=== PATIENT | female | born 1955 | race Caucasian/White ===

== ENCOUNTER 2020-05-06 10:57 | Inpatient (IN) | payer MEDICARE, BC ==
[2020-04-29 12:55] LABS: BASOPHILS % (AUTO) 0.7 % (0-1); EOSINOPHILS % (AUTO) 0.8 % (0-6); LYMPHOCYTES # (AUTO) 1.1 X10'3 (1.1-4.8); LYMPHOCYTES % (AUTO) 22.1 % (21-51); MEAN CORPUSCULAR HEMOGLOBIN 29.9 PG (27.0-31.0); MEAN CORPUSCULAR HGB CONC 33.5 g/dL (33.0-36.5); MEAN CORPUSCULAR VOLUME 89.4 FL (78-98); MEAN PLATELET VOLUME 6.9 FL (7.4-10.4); MONOCYTES # (AUTO) 0.4 X10'3 (0-0.9); MONOCYTES % (AUTO) 8.5 % (2-12); NEUTROPHILS # (AUTO) 3.4 X10'3 (1.8-7.7); NEUTROPHILS % (AUTO) 67.9 % (42-75); PRE OP HEMATOCRIT 35.7 % (35.0-45.0); PRE OP HEMOGLOBIN 11.9 g/dL (12.0-16.0); PRE OP PLATELET COUNT 395 X10'3 (140-440); RED BLOOD COUNT 3.99 X10'6 (4.20-5.60); RED CELL DISTRIBUTION WIDTH 13.6 % (11.5-14.5)
[2020-04-29 13:05] LABS: ALBUMIN 3.8 G/DL (3.4-5.0); ALBUMIN/GLOBULIN RATIO 0.9 (1.1-1.5); ALKALINE PHOSPHATASE 93 IU/L (46-116); BLOOD UREA NITROGEN 21 MG/DL (7-18); BUN/CREATININE RATIO 23.9 (6.6-38.0); CALCIUM 9.2 MG/DL (8.5-10.1); CHLORIDE 104 MMOL/L (99-107); CREATININE 0.88 MG/DL (0.40-0.90); PRE OP ALT 44 U/L (30-65); PRE OP ANION GAP 4 (8-16); PRE OP AST 24 U/L (10-37); PRE OP BILIRUB, TOTAL 0.2 MG/DL (0.0-1.0); PRE OP POTASSIUM 3.9 MMOL/L (3.4-5.1); PRE OP PROTIME 10.2 SECONDS (9.0-12.0); PRE OP SODIUM 140 MMOL/L (135-145); TOTAL CARBON DIOXIDE 31.7 MMOL/L (24-32); TOTAL PROTEIN 8.2 G/DL (6.4-8.2); eGFR 64 ML/MIN
[2020-04-29 13:06] LABS: PRE OP GLUCOSE 121 MG/DL (70-104)
[~2020-05-06] VITALS: Ht 162.6 cm; Wt 90.3 kg
[2020-05-06] VITALS (20 sets, daily range): BP systolic 114–144; BP diastolic 53–97
--- NOTE | 2020-05-06 05:30 | NUR ---
Patient in room ORTHO 4023. I have received report from KASSANDRA Alfaro and had the opportunity to ask questions and assume patient care.
--- NOTE | 2020-05-06 06:00 | NUR ---
Problems reprioritized. Patient report given, questions answered & plan of care reviewed with KASSANDRA Suarez.
[~2020-05-06 10:57] MED LIST: AMPH20TA3 PO; CHLO50TA PO; CHOL100025 PO; ESCI20TA45 PO; MAGN400C PO; OLME5TAB3 PO; OMEG-79 PO; VITA1CAP PO; cefazolin/dext.iso 2gm/50ml 50 ML IV ONE; famotidine 20mg tablet PO ONE; ringers solution, lacted 1,000 ML IV SCH; vancomycin 1,500 MG in NS 300ml IV soln IV ONE
[2020-05-06] MEDS ORDERED: ROPIVAcaine inj 200 MG, ketorolac trometh inj. 30 MG, epiNEPHrine inj 0.6 MG, morphine ... IU ONE ×5 (12:50)
[2020-05-06] MEDS ORDERED: vancomycin 1,000mg inj ONE (12:59)
[2020-05-06] MEDS ORDERED: ceFAZolin 1000mg inj ONE (12:59)
[2020-05-06] MEDS ORDERED: scopolamine 1.5mg patch.TD72 TD ONE (13:05)
[2020-05-06] MEDS ORDERED: propofol 10mg/ml 20ml vial IV ONE (13:09)
[2020-05-06] MEDS ORDERED: TRANEXAMIC ACID 1 GM IN NACL,ISO-OS 100 ML IV ONE (13:15)
[2020-05-06] MEDS ORDERED: tetracaine 1% (10mg/ml) pres. free inj. ONE (13:23)
[2020-05-06] MEDS ORDERED: Thrombin (Bovine) 5,000 unit vial TP ONE (13:24)
[2020-05-06] MEDS ORDERED: hydrALAZINE 20mg/ml inj. IV PRN (14:15)
[2020-05-06] MEDS ORDERED: labetalol 20mg/4ml (5mg/ml) syringe IV PRN (14:15)
[2020-05-06] MEDS ORDERED: HYDROmorphone inj. 0.5 MG/0.5 ML DISP.SYRIN IV PRN ×3 (14:15→15:20)
[2020-05-06] MEDS ORDERED: ringers solution, lacted 1,000 ML IV SCH (14:15)
[2020-05-06] MEDS ORDERED: meperidine/PF 25mg/ml syringe IV PRN (14:15)
[2020-05-06] MEDS ORDERED: morphine 4 MG/ML inj SYRINge IV PRN (14:15)
[2020-05-06] MEDS ORDERED: morphine 2 MG/ML inj. syringe IV PRN (14:15)
[2020-05-06] MEDS ORDERED: acetaminophen 1,000mg/100ml IV 100 ML IV PRN (14:15)
[2020-05-06] MEDS ORDERED: ondansetron/PF 4mg/2ml inj IV PRN ×2 (14:15→15:20)
[2020-05-06] MEDS ORDERED: proCHLORperazine 10 MG/2 ml inj IV PRN (14:15)
[2020-05-06] MEDS ORDERED: ROPIVAcaine 0.2% (10 MG/5 ML) BOLUS INJECTION ADDCANAL PRN (14:20)
[2020-05-06] MEDS ORDERED: HYDROmorphone 1 mg/ml syringe IV PRN (15:20)
[2020-05-06] MEDS ORDERED: magnesium hydroxide 30ml (MOM) UD suspension PO PRN (15:20)
[2020-05-06] MEDS ORDERED: oxyCODONE IR 5mg (immed. release) tablet PO PRN ×2 (15:20)
[2020-05-06] MEDS ORDERED: bisacodyl 10mg suppository rectal RC PRN (15:20)
[2020-05-06] MEDS ORDERED: acetaminophen 325mg tablet PO PRN (15:20)
[2020-05-06] MEDS ORDERED: diphenhydrAMINE 25mg capsule PO PRN ×2 (15:20)
--- NOTE | 2020-05-06 15:57 | NUR ---
Received from OR via ORTHO BED WITH [facility] , accompanied by Anesthesiologist JUNIOR and report given by Anesthesiolgist. PATIENT WITH 20G PIV IN RIGHT HAND RUNNING LR AT 100. DENIES PAIN, SENSATION LEVEL AT L1 CURRENTLY. NERVE BLOCK SITE TO LEFT UPPER THIGH AREA THAT IS CDI. CONNECTED TO ON Q UPON ARRIVAL. + DP TO LEFT FOOT, KNEE WRAP PRESENT AND IS CDI, POWDER PACK PRESENT. NUPUR VAC. NO DRAINAGE TO DRESSING. PATIENT SCDS DONNED UPON ARRIVAL. MORALES CATHETER IN PLACE WITH 600 CC OF CLEAR YELLOW URINE. VSS 10L MASK ON WITH 100% SATURATIONS. GLASSES DONNED. Addendum: 05/06/20 at 1623 by Dominic Orozco RN, RN Amended: Links added.
[2020-05-06] MEDS: ROPIVAcaine 0.2%/PF PUMP/bolus 550 ML ADDCANAL SCH ×2 (16:05→19:33)
--- NOTE | 2020-05-06 17:27 | NUR ---
ALL CRITERIA FOR TRANSFER TO THE FLOOR HAS BEEN ACHIEVED. REPORT GIVEN AND ALL QUESTIONS ANSWERED, VSS. BED LOW 2 RAILS UP, CALL LIGHT PRESENT AND PATIENT HOOKED UP TO ALL LINES AND VSS. PATIENTS RN PRESENT TO ACCEPT CARE. KASSANDRA HOU PRESENT TO ACCEPT CARE OF THIS PATIENT. 2 BAGS PLACED ON BEDSIDE OF 4023A AND GLASSES ON PATIENTS FACE WHILE SHE HELD HER PERSONAL PHONE. Addendum: 05/06/20 at 1734 by Dominic Christina - KASSANDRA CANNON Amended: Links added.
--- NOTE | 2020-05-06 18:08 | NUR ---
Problems reprioritized. Patient report given, questions answered & plan of care reviewed with Daniela CANNON.
[2020-05-06] MEDS ORDERED: tranexamic acid inj. 900 MG in normal saline 100ml IV soln 100 ML IV ONE (18:30)
[2020-05-06] MEDS: acetaminophen 325mg tablet PO SCH (19:19)
[2020-05-06] MEDS ORDERED: vancomycin/NS 1 GM ADD-VANTAGE 250 ML IV SCH (20:00)
[2020-05-06] MEDS: gabapentin 300mg capsule PO SCH (21:00)
[2020-05-06] MEDS: sennosides 8.6mg tablet PO SCH (21:00)
[2020-05-06] MEDS: ceFAZolin 1GM/D5W- ADD-VANTAGE 50 ML IV SCH (21:21)
[2020-05-06] MEDS: potassium cl 20mEq in 1/2 NS 1,000 ML IV SCH ×2 (23:20→23:28)
[2020-05-07] MEDS: ceFAZolin 1GM/D5W- ADD-VANTAGE 50 ML IV SCH (02:00)
[2020-05-07] MEDS: acetaminophen 325mg tablet PO SCH ×2 (02:06→08:21)
[2020-05-07] MEDS: HYDROcodone/acetaminophen 5mg/325mg tablet PO PRN (05:29)
[2020-05-07] MEDS: ROPIVAcaine 0.2%/PF PUMP/bolus 550 ML ADDCANAL SCH (05:31)
--- NOTE | 2020-05-07 05:56 | NUR ---
reported to days. noted pt ortega removed. anxious to start with PT. pt requested lower dose of norco "I don't like taking a lot of pain medication if I don't need to, but I also don't like pain." gave norco with crackers and applesauce
[2020-05-07 06:00] VITALS: BP 122/81
[2020-05-07 06:28] LABS: BASOPHILS % (AUTO) 0.3 % (0-1); EOSINOPHILS % (AUTO) 0.6 % (0-6); HEMATOCRIT 32.9 % (35.0-45.0); HEMOGLOBIN 10.9 g/dl (12.0-16.0); LYMPHOCYTES % (AUTO) 13.2 % (21-51); MEAN CORPUSCULAR HEMOGLOBIN 29.7 PG (27.0-31.0); MEAN CORPUSCULAR HGB CONC 33.1 g/dL (33.0-36.5); MEAN CORPUSCULAR VOLUME 89.7 FL (78-98); MEAN PLATELET VOLUME 7.1 FL (7.4-10.4); MONOCYTES # (AUTO) 0.5 X10'3 (0-0.9); MONOCYTES % (AUTO) 7.1 % (2-12); NEUTROPHILS # (AUTO) 6.1 X10'3 (1.8-7.7); NEUTROPHILS % (AUTO) 78.8 % (42-75); PLATELET COUNT 365 X10'3 (140-440); RED BLOOD COUNT 3.67 X10'6 (4.20-5.60); RED CELL DISTRIBUTION WIDTH 13.7 % (11.5-14.5); WHITE BLOOD COUNT 7.7 X10'3 (4.5-11.0)
[2020-05-07 06:40] LABS: ANION GAP 9 (8-16); CHLORIDE 105 MMOL/L (99-107); POTASSIUM 4.4 MMOL/L (3.5-5.1); SODIUM 142 MMOL/L (135-145); TOTAL CARBON DIOXIDE 28.3 MMOL/L (24-32)
[2020-05-07] MEDS ORDERED: dextroamphetamine/amphetamine 10mg tablet PO SCH (08:00)
[2020-05-07] MEDS: losartan 25mg tablet PO SCH (08:19)
[2020-05-07] MEDS: chlorthalidone 25mg tablet PO SCH (08:19)
[2020-05-07] MEDS: vitamin B comp w/Vit. C tab 1 TAB TABLET PO SCH (08:19)
[2020-05-07] MEDS: gabapentin 300mg capsule PO SCH ×3 (08:20→19:45)
[2020-05-07] MEDS: OMEGA-3/DHA/EPA/FISH OIL 1 EACH CAPSULE.DR PO SCH (08:20)
[2020-05-07] MEDS: magnesium oxide 400mg tablet PO SCH (08:20)
[2020-05-07] MEDS: ESCITALOPRAM OXALATE 5 MG TABLET PO SCH (08:20)
[2020-05-07] MEDS: vitamin D (cholecalciferol) 1,000 unit tablet PO SCH (08:21)
[2020-05-07] MEDS: enoxaparin 40mg/0.4ml syringe SQ SCH (08:22)
[2020-05-07 10:00] VITALS: BP 113/58
[2020-05-07] MEDS: potassium cl 20mEq in 1/2 NS 1,000 ML IV SCH (10:33)
[2020-05-07] MEDS: HYDROcodone/acetaminophen 10/325mg tab PO PRN ×3 (11:02→19:46)
--- NOTE | 2020-05-07 13:39 | NUR ---
Doctor to see patient educated, gave test results. Patient came out and started walking out of the hospital, doctor aware patient is leaving AM and patient refused to sign form. Addendum: 05/07/20 at 1424 by Brina Santos RN WRONG PATIENT
--- NOTE | 2020-05-07 14:24 | NUR ---
Joint Replacement Consult: Pt seen by RD for written/verbal high protein ed w/ RD contact information. Pt is agreeable to Leia ALBARADO; SOCK TURNER notified. Will continue to monitor for additional protein needs this admit. To f/u 05/11 for initial assessment. Addendum: 05/07/20 at [address] Amended: Links added.
[2020-05-07] MEDS ORDERED: JUVEN Smoothie Arginine/Glut./Ca2+Bmb (Juven 19.3pkt) 240ml cup PO SCH (17:30)
[2020-05-07 18:00] VITALS: BP 127/62
--- NOTE | 2020-05-07 18:30 | NUR ---
Patient in room ORTHO 4023. I have received report from Brina CANNON and had the opportunity to ask questions and assume patient care.
[2020-05-07] MEDS: celeCOXIB 100mg capsule PO SCH (19:45)
[2020-05-07] MEDS: sennosides 8.6mg tablet PO SCH (19:46)
[2020-05-07 22:00] VITALS: BP 123/56
[2020-05-08] MEDS: HYDROcodone/acetaminophen 10/325mg tab PO PRN (05:02)
[2020-05-08 06:00] VITALS: BP 124/54
[2020-05-08 06:02] LABS: BASOPHILS % (AUTO) 0.2 % (0-1); EOSINOPHILS # (AUTO) 0.1 X10'3 (0-0.9); EOSINOPHILS % (AUTO) 0.8 % (0-6); HEMATOCRIT 29.2 % (35.0-45.0); HEMOGLOBIN 9.8 g/dl (12.0-16.0); LYMPHOCYTES # (AUTO) 0.9 X10'3 (1.1-4.8); LYMPHOCYTES % (AUTO) 14.3 % (21-51); MEAN CORPUSCULAR HEMOGLOBIN 29.9 PG (27.0-31.0); MEAN CORPUSCULAR HGB CONC 33.4 g/dL (33.0-36.5); MEAN CORPUSCULAR VOLUME 89.5 FL (78-98); MEAN PLATELET VOLUME 7.1 FL (7.4-10.4); MONOCYTES # (AUTO) 0.7 X10'3 (0-0.9); MONOCYTES % (AUTO) 10.4 % (2-12); NEUTROPHILS # (AUTO) 4.8 X10'3 (1.8-7.7); NEUTROPHILS % (AUTO) 74.3 % (42-75); PLATELET COUNT 320 X10'3 (140-440); RED BLOOD COUNT 3.26 X10'6 (4.20-5.60); RED CELL DISTRIBUTION WIDTH 13.6 % (11.5-14.5); WHITE BLOOD COUNT 6.4 X10'3 (4.5-11.0)
--- NOTE | 2020-05-08 06:24 | NUR ---
Problems reprioritized. Patient report given, questions answered & plan of care reviewed with Patrick CANNON.
--- NOTE | 2020-05-08 06:32 | NUR ---
Patient in room ORTHO 4023. I have received report from [facility] and had the opportunity to ask questions and assume patient care.
[2020-05-08] MEDS: gabapentin 300mg capsule PO SCH ×3 (07:39→19:51)
[2020-05-08] MEDS: magnesium oxide 400mg tablet PO SCH (07:39)
[2020-05-08] MEDS: celeCOXIB 100mg capsule PO SCH ×2 (07:40→19:50)
[2020-05-08] MEDS: vitamin B comp w/Vit. C tab 1 TAB TABLET PO SCH (07:40)
[2020-05-08] MEDS: losartan 25mg tablet PO SCH (07:40)
[2020-05-08] MEDS: OMEGA-3/DHA/EPA/FISH OIL 1 EACH CAPSULE.DR PO SCH (07:40)
[2020-05-08] MEDS: ESCITALOPRAM OXALATE 5 MG TABLET PO SCH (07:40)
[2020-05-08] MEDS: vitamin D (cholecalciferol) 1,000 unit tablet PO SCH (07:40)
[2020-05-08] MEDS: chlorthalidone 25mg tablet PO SCH (07:40)
[2020-05-08] MEDS: enoxaparin 40mg/0.4ml syringe SQ SCH (07:41)
[2020-05-08] MEDS: dextroamphetamine/amphetamine 5mg tablet PO SCH (08:32)
[2020-05-08 10:00] VITALS: BP 109/55
[2020-05-08] MEDS: HYDROcodone/acetaminophen 5mg/325mg tablet PO PRN (12:35)
[2020-05-08] MEDS: ROPIVAcaine 0.2%/PF PUMP/bolus 550 ML ADDCANAL SCH (14:20)
[2020-05-08] MEDS ORDERED: acetaminophen 325mg tablet PO PRN (15:20)
[2020-05-08 18:00] VITALS: BP 155/67
--- NOTE | 2020-05-08 18:12 | NUR ---
Problems reprioritized. Patient report given, questions answered & plan of care reviewed with Meghana.
--- NOTE | 2020-05-08 18:18 | NUR ---
Patient in room ORTHO 4023. I have received report from Patrick CANNON and had the opportunity to ask questions and assume patient care.
[2020-05-08] MEDS: sennosides 8.6mg tablet PO SCH (19:52)
[2020-05-08 22:00] VITALS: BP 149/70
[2020-05-09] MEDS: HYDROcodone/acetaminophen 5mg/325mg tablet PO PRN (00:49)
[2020-05-09] MEDS: ROPIVAcaine 0.2%/PF PUMP/bolus 550 ML ADDCANAL SCH ×2 (03:57→05:06)
[2020-05-09] MEDS: HYDROcodone/acetaminophen 10/325mg tab PO PRN (04:53)
[2020-05-09 06:17] LABS: BASOPHILS % (AUTO) 0.4 % (0-1); EOSINOPHILS # (AUTO) 0.1 X10'3 (0-0.9); EOSINOPHILS % (AUTO) 1.5 % (0-6); HEMATOCRIT 28.6 % (35.0-45.0); HEMOGLOBIN 9.6 g/dl (12.0-16.0); LYMPHOCYTES % (AUTO) 13.1 % (21-51); MEAN CORPUSCULAR HEMOGLOBIN 29.9 PG (27.0-31.0); MEAN CORPUSCULAR HGB CONC 33.6 g/dL (33.0-36.5); MEAN CORPUSCULAR VOLUME 88.9 FL (78-98); MEAN PLATELET VOLUME 7.1 FL (7.4-10.4); MONOCYTES # (AUTO) 0.8 X10'3 (0-0.9); MONOCYTES % (AUTO) 10.6 % (2-12); NEUTROPHILS # (AUTO) 5.4 X10'3 (1.8-7.7); NEUTROPHILS % (AUTO) 74.4 % (42-75); PLATELET COUNT 343 X10'3 (140-440); RED BLOOD COUNT 3.22 X10'6 (4.20-5.60); RED CELL DISTRIBUTION WIDTH 13.4 % (11.5-14.5); WHITE BLOOD COUNT 7.3 X10'3 (4.5-11.0)
--- NOTE | 2020-05-09 06:40 | NUR ---
Problems reprioritized. Patient report given, questions answered & plan of care reviewed with Brina CANNON.
[2020-05-09 06:46] VITALS: BP 147/62
[2020-05-09 08:10] VITALS: BP_SYST 147
[2020-05-09] MEDS: losartan 25mg tablet PO SCH (08:10)
[2020-05-09] MEDS: chlorthalidone 25mg tablet PO SCH (08:11)
[2020-05-09] MEDS: vitamin D (cholecalciferol) 1,000 unit tablet PO SCH (08:12)
[2020-05-09] MEDS: OMEGA-3/DHA/EPA/FISH OIL 1 EACH CAPSULE.DR PO SCH (08:12)
[2020-05-09] MEDS: celeCOXIB 100mg capsule PO SCH (08:13)
[2020-05-09] MEDS: vitamin B comp w/Vit. C tab 1 TAB TABLET PO SCH (08:13)
[2020-05-09] MEDS: dextroamphetamine/amphetamine 5mg tablet PO SCH (08:13)
[2020-05-09] MEDS: ESCITALOPRAM OXALATE 5 MG TABLET PO SCH (08:14)
[2020-05-09] MEDS: enoxaparin 40mg/0.4ml syringe SQ SCH (08:15)
[2020-05-09] MEDS: magnesium oxide 400mg tablet PO SCH (08:15)
[2020-05-09] MEDS: gabapentin 300mg capsule PO SCH (08:15)
== END 2020-05-09 13:30 | DRG 470 ==
LOC: PAS IN 11:24 → UNDOADMIN 11:24 → EDSTATUS 12:45 → PAS IN 15:16 → ORTHO 4S 17:18
PROVIDERS: ADMIT Orthopaedic Surgery; ATTEND Orthopaedic Surgery
PROC: 0SRD0J9 Replacement of Left Knee Joint with Synthetic Substitute, Cemented, Open Approach (ICD-10-PCS; principal; 2020-05-06 13:09)
DX: M17.12 Unilateral primary osteoarthritis, left knee (principal); D62 Acute posthemorrhagic anemia
CPT/HCPCS: 36415; 80051; 80053; 82948; 85025; 85610; 85730; 87081; 87635; 97110; 97112; 97116; 97161; 97530; A4215; A6454; A7000; C1713; C1758; C1776; G0378; J0690; J1650; J2405; J2704; J2795; J3370; J3480; J7040; J7120

== ENCOUNTER → 2020-09-08 | Outpatient (CLI) | payer MEDICARE, BC ==
[~2020-09-08] MED LIST changes: +AMOX-580 PO; -ESCI20TA45 PO; +HYDR-3965 PO; +LIDOcaine 2% 5ml jelly ONE; -cefazolin/dext.iso 2gm/50ml 50 ML IV ONE; -famotidine 20mg tablet PO ONE; -ringers solution, lacted 1,000 ML IV SCH; -vancomycin 1,500 MG in NS 300ml IV soln IV ONE
== END | disposition home or self-care (01) ==
LOC: EDSTATUS 10:00 → WOUND CARE 10:06
PROVIDERS: ATTEND Nurse Practitioner
DX: T81.89XD Other complications of procedures, not elsewhere classified, subsequent encounter (principal); S31.609D Unspecified open wound of abdominal wall, unspecified quadrant with penetration into peritoneal cavity, subsequent encounter; I12.9 Hypertensive chronic kidney disease with stage 1 through stage 4 chronic kidney disease, or unspecified chronic kidney disease; N18.30 Chronic kidney disease, stage 3 unspecified; E87.1 Hypo-osmolality and hyponatremia; E87.6 Hypokalemia; F32.9 Major depressive disorder, single episode, unspecified; F90.9 Attention-deficit hyperactivity disorder, unspecified type; Z96.659 Presence of unspecified artificial knee joint; X58.XXXD Exposure to other specified factors, subsequent encounter; Y83.8 Other surgical procedures as the cause of abnormal reaction of the patient, or of later complication, without mention of misadventure at the time of the procedure
CPT/HCPCS: 11042

== ENCOUNTER 2020-12-02 19:51 | Emergency (ER) | payer MEDICARE, BC ==
[~2020-12-02] VITALS: Ht 162.6 cm; Wt 94.3 kg
[~2020-12-02 19:51] MED LIST changes: -AMOX-580 PO; -HYDR-3965 PO; -LIDOcaine 2% 5ml jelly ONE
[2020-12-02 20:29] LABS: BASOPHILS % (AUTO) 0.8 % (0-1); EOSINOPHILS # (AUTO) 0.1 X10'3 (0-0.9); HEMATOCRIT 34.4 % (35.0-45.0); HEMOGLOBIN 11.4 g/dl (12.0-16.0); LYMPHOCYTES # (AUTO) 1.3 X10'3 (1.1-4.8); LYMPHOCYTES % (AUTO) 21.3 % (21-51); MEAN CORPUSCULAR HGB CONC 33.2 g/dL (33.0-36.5); MEAN CORPUSCULAR VOLUME 87.3 FL (78-98); MEAN PLATELET VOLUME 6.8 FL (7.4-10.4); MONOCYTES # (AUTO) 0.6 X10'3 (0-0.9); MONOCYTES % (AUTO) 9.4 % (2-12); NEUTROPHILS # (AUTO) 4.2 X10'3 (1.8-7.7); NEUTROPHILS % (AUTO) 67.5 % (42-75); PLATELET COUNT 391 X10'3 (140-440); RED BLOOD COUNT 3.94 X10'6 (4.20-5.60); RED CELL DISTRIBUTION WIDTH 15.7 % (11.5-14.5); WHITE BLOOD COUNT 6.2 X10'3 (4.5-11.0)
[2020-12-02 20:39] LABS: ALANINE AMINOTRANSFERASE 46 U/L (12-78); ALBUMIN 3.9 G/DL (3.4-5.0); ALBUMIN/GLOBULIN RATIO 0.9 (1.1-1.5); ALKALINE PHOSPHATASE 115 IU/L (46-116); ANION GAP 13 (8-16); ASPARTATE AMINO TRANSFERASE 33 U/L (10-37); BILIRUBIN,TOTAL 0.3 MG/DL (0.1-1.0); BLOOD UREA NITROGEN 15 MG/DL (7-18); BUN/CREATININE RATIO 14.3 (6.6-38.0); CALCIUM 9.3 MG/DL (8.5-10.1); CHLORIDE 104 MMOL/L (99-107); CREATININE 1.05 MG/DL (0.40-0.90); POTASSIUM 3.7 MMOL/L (3.5-5.1); SODIUM 140 MMOL/L (135-145); TOTAL CARBON DIOXIDE 22.6 MMOL/L (24-32); TOTAL PROTEIN 8.1 G/DL (6.4-8.2); eGFR 52 ML/MIN
[2020-12-02 20:47] LABS: TROPONIN I < 0.04 NG/ML (0.0-0.05)
[2020-12-02 20:55] LABS: GLUCOSE 89 MG/DL (70-104)
--- NOTE | 2020-12-02 21:08 | NUR ---
PT SHOWS NO S/S OF ACUTE DISTRESS. NO NEEDS REQUESTED AT THIS TIME.
--- NOTE | 2020-12-02 21:10 | NUR ---
PT REPORTS 10 LB WEIGHT GAIN IN 1 WEEK. NEW ONSET EDEMA.
[2020-12-02 21:57] VITALS: BP 174/89
== END 2020-12-02 21:59 | disposition home or self-care (01) ==
LOC: ER 19:53
DX: R60.0 Localized edema (principal); I10 Essential (primary) hypertension; Z98.890 Other specified postprocedural states; Z79.899 Other long term (current) drug therapy
CPT/HCPCS: 36415; 71045; 80053; 83880; 84484; 85025; 93005; 99285

== ENCOUNTER 2021-01-08 16:26 | Emergency (ER) | payer MEDICARE, BC ==
[~2021-01-08] VITALS: Ht 162.6 cm; Wt 88.0 kg
[2021-01-08 17:03] LABS: BASOPHILS % (AUTO) 0.4 % (0-1); EOSINOPHILS # (AUTO) 0.1 X10'3 (0-0.9); EOSINOPHILS % (AUTO) 1.2 % (0-6); HEMATOCRIT 36.9 % (35.0-45.0); HEMOGLOBIN 12.6 g/dl (12.0-16.0); LYMPHOCYTES # (AUTO) 1.1 X10'3 (1.1-4.8); LYMPHOCYTES % (AUTO) 19.4 % (21-51); MEAN CORPUSCULAR HEMOGLOBIN 28.9 PG (27.0-31.0); MEAN CORPUSCULAR HGB CONC 34.1 g/dL (33.0-36.5); MEAN CORPUSCULAR VOLUME 84.7 FL (78-98); MONOCYTES # (AUTO) 0.4 X10'3 (0-0.9); MONOCYTES % (AUTO) 7.6 % (2-12); NEUTROPHILS % (AUTO) 71.4 % (42-75); PLATELET COUNT 436 X10'3 (140-440); RED BLOOD COUNT 4.36 X10'6 (4.20-5.60); RED CELL DISTRIBUTION WIDTH 13.7 % (11.5-14.5); WHITE BLOOD COUNT 5.6 X10'3 (4.5-11.0)
[2021-01-08 17:04] LABS: CLARITY,URINE CLEAR (Clear); COLOR,URINE YELLOW (Yellow); GLUCOSE, URINE NEGATIVE (Neg); KETONES,URINE NEGATIVE (Neg); LEUKOCYTE ESTERASE ,URINE SMALL (Neg); NITRITES, URINE NEGATIVE (Neg); OCCULT BLOOD,URINE NEGATIVE (Neg); PH,URINE 5.5 (4.8-8.0); PROTEIN,URINE NEGATIVE (Neg); UROBILINOGEN,URINE 0.2 E.U/dL (0.2-1.0)
[2021-01-08 17:08] LABS: UA COLLECTION TYPE CLN CATCH MIDSTREAM
[2021-01-08 17:09] LABS: BACTERIA,URINE FEW /HPF (Neg); RBC,URINE 0-2 /HPF (0-2); WBC,URINE 0-4 /HPF (0-4)
[2021-01-08 17:10] LABS: MUCUS STRANDS FEW /LPF (Neg); SQUAMOUS EPITHELIAL CELL,UR MANY /LPF (FEW)
[2021-01-08 17:17] LABS: ALANINE AMINOTRANSFERASE 41 U/L (12-78); ALBUMIN/GLOBULIN RATIO 0.9 (1.1-1.5); ALKALINE PHOSPHATASE 105 IU/L (46-116); ANION GAP 10 (8-16); ASPARTATE AMINO TRANSFERASE 22 U/L (10-37); BILIRUBIN,TOTAL 0.3 MG/DL (0.1-1.0); BLOOD UREA NITROGEN 44 MG/DL (7-18); CALCIUM 9.9 MG/DL (8.5-10.1); CHLORIDE 101 MMOL/L (99-107); CREATININE 1.63 MG/DL (0.40-0.90); LIPASE < 50 U/L (73-393); POTASSIUM 3.5 MMOL/L (3.5-5.1); SODIUM 138 MMOL/L (135-145); TOTAL CARBON DIOXIDE 27.1 MMOL/L (24-32); TOTAL PROTEIN 8.6 G/DL (6.4-8.2); eGFR 31 ML/MIN
[2021-01-08 17:18] LABS: GLUCOSE 130 MG/DL (70-104)
[2021-01-08] MEDS ORDERED: ondansetron/PF 4mg/2ml inj IV ONE (17:30)
[2021-01-08] MEDS ORDERED: normal saline 1000ML IV soln IVB ONE (17:30)
[2021-01-08] MEDS ORDERED: ONDA4TAB12 PO (19:06)
[2021-01-08 19:39] VITALS: BP 146/83
== END 2021-01-08 19:40 | disposition home or self-care (01) ==
LOC: ER 16:27
DX: E86.0 Dehydration (principal); R11.10 Vomiting, unspecified; I10 Essential (primary) hypertension; Z90.49 Acquired absence of other specified parts of digestive tract; Z98.890 Other specified postprocedural states; Z79.899 Other long term (current) drug therapy
CPT/HCPCS: 36415; 80053; 81001; 83690; 85025; 96361; 96374; 99283; J2405; J7030

== ENCOUNTER 2024-02-08 10:17 | Day surgery (SDC) | payer MEDICARE, BC ==
[2024-02-01 12:14] LABS: BASOPHILS % (AUTO) 0.9 % (0-1); EOSINOPHILS % (AUTO) 0.9 % (0-6); LYMPHOCYTES # (AUTO) 1.1 X10'3 (1.1-4.8); LYMPHOCYTES % (AUTO) 21.8 % (21-51); MEAN CORPUSCULAR HEMOGLOBIN 30.4 PG (27.0-31.0); MEAN CORPUSCULAR HGB CONC 33.4 g/dL (33.0-36.5); MEAN CORPUSCULAR VOLUME 90.9 FL (78-98); MEAN PLATELET VOLUME 7.3 FL (7.4-10.4); MONOCYTES # (AUTO) 0.4 X10'3 (0-0.9); NEUTROPHILS # (AUTO) 3.3 X10'3 (1.8-7.7); NEUTROPHILS % (AUTO) 68.4 % (42-75); PRE OP HEMATOCRIT 39.6 % (35.0-45.0); PRE OP HEMOGLOBIN 13.2 g/dL (12.0-16.0); PRE OP PLATELET COUNT 354 X10'3 (140-440); PRE OP WHITE BLOOD COUNT 4.9 10'3 (4.8-10.8); RED BLOOD COUNT 4.36 X10'6 (4.20-5.60); RED CELL DISTRIBUTION WIDTH 14.5 % (11.5-14.5)
[2024-02-01 12:27] LABS: ALBUMIN 4.1 G/DL (3.4-5.0); ALBUMIN/GLOBULIN RATIO 1.1 (1.1-1.5); ALKALINE PHOSPHATASE 65 IU/L (46-116); BLOOD UREA NITROGEN 12 MG/DL (7-18); BUN/CREATININE RATIO 14.3 (10.0-20.0); CALCIUM 9.7 MG/DL (8.5-10.1); CHLORIDE 102 MMOL/L (99-107); CREATININE 0.84 MG/DL (0.40-0.90); PRE OP ALT 23 U/L (30-65); PRE OP ANION GAP 10 (8-16); PRE OP AST 13 U/L (10-37); PRE OP BILIRUB, TOTAL 0.6 MG/DL (0.0-1.0); PRE OP POTASSIUM 3.9 MMOL/L (3.4-5.1); PRE OP SODIUM 138 MMOL/L (135-145); TOTAL CARBON DIOXIDE 25.6 MMOL/L (24-32); TOTAL PROTEIN 7.8 G/DL (6.4-8.2); eGFR 67 ML/MIN
[2024-02-01 12:42] LABS: PRE OP GLUCOSE 91 MG/DL (70-104)
[~2024-02-08] VITALS: Ht 162.6 cm; Wt 69.0 kg
[2024-02-08] VITALS (23 sets, daily range): BP systolic 114–143; BP diastolic 51–84; PULSE 61–88; RESP 14–20; TEMP 98.6; O2SAT 92–100
[~2024-02-08 10:17] MED LIST changes: -AMPH20TA3 PO; -CHLO50TA PO; -CHOL100025 PO; +EMPA25TA PO; +LOSA50TA64 PO; -MAGN400C PO; -OLME5TAB3 PO; -OMEG-79 PO; +TIRZ10PE SQ; -VITA1CAP PO
[2024-02-08] MEDS: cefazolin 2gm/D5W 100mL 100 ML IV ONE (11:34)
[2024-02-08] MEDS: famotidine 20mg tablet PO ONE (11:34)
[2024-02-08] MEDS: ringers solution, lacted 1,000 ML IV SCH (11:34)
[2024-02-08] MEDS ORDERED: BUPIVAcaine/PF 2.5mg/ml (0.25%) 10ml vial ONE (13:22)
[2024-02-08] MEDS: scopolamine 1MG/72H patch 1 PATCH PATCH.TD.3 TD ONE (13:28)
[2024-02-08] MEDS ORDERED: sevoflurane 250ml liquid IH ONE (13:31)
[2024-02-08] MEDS ORDERED: fentaNYL/PF 50MCG/1 ML 2ML syringe IV PRN (13:55)
[2024-02-08] MEDS ORDERED: ringers solution, lacted 1,000 ML IV SCH (13:55)
[2024-02-08] MEDS ORDERED: HYDROmorphone/PF 0.2 MG/ML SYRINGE IV PRN (13:55)
[2024-02-08] MEDS ORDERED: proMETHazine 25mg rectal suppository RC PRN (13:55)
[2024-02-08] MEDS ORDERED: proCHLORperazine 10 MG/2 ml inj IV PRN (13:55)
[2024-02-08] MEDS ORDERED: labetalol 20mg/4ml (5mg/ml) syringe IV PRN (13:55)
[2024-02-08] MEDS ORDERED: ondansetron/PF 4mg/2ml inj IV PRN (13:55)
[2024-02-08] MEDS: LIDOcaine 1% 30ml preserv. free vial ONE (14:05)
[2024-02-08] MEDS: BUPIVAcaine 2.5mg/ml inj 50ml vial (contains preservative) ONE (14:05)
[2024-02-08] MEDS: BUPIVACAINE liposomal/PF 13.3 MG/ML vial IM ONE (14:07)
[2024-02-08] MEDS: BUPIVAcaine/PF 2.5mg/ml (0.25%) 10ml vial ONE (14:08)
[2024-02-08] MEDS ORDERED: propofol inj 20 ML IV ONE (14:12)
[2024-02-08] MEDS ORDERED: ondansetron/PF 4mg/2ml inj ONE (14:12)
[2024-02-08] MEDS ORDERED: rocuronium 10mg/ml inj IV ONE (14:12)
[2024-02-08] MEDS ORDERED: dexamethasone sod phosphate 4mg/ml inj. ONE (14:12)
[2024-02-08] MEDS ORDERED: LIDOcaine 1%/PF 5ML 10 MG/ML VIAL ONE (14:12)
[2024-02-08] MEDS ORDERED: sugammadex 200mg/2ml injection IV ONE (15:02)
[2024-02-08] MEDS ORDERED: oxyCODONE/APAP 5-325mg tablet PO PRN (15:40)
[2024-02-08] MEDS: acetaminophen 1,000mg/100ml IV 100 ML IV ONE (16:52)
== END 2024-02-08 18:44 | disposition home or self-care (01) ==
LOC: PRE-OP 10:17
PROVIDERS: ATTEND Surgery
DX: K43.0 Incisional hernia with obstruction, without gangrene (principal); G89.18 Other acute postprocedural pain; I10 Essential (primary) hypertension; E11.9 Type 2 diabetes mellitus without complications; G47.33 Obstructive sleep apnea (adult) (pediatric); F32.A Depression, unspecified; F90.9 Attention-deficit hyperactivity disorder, unspecified type; Z79.899 Other long term (current) drug therapy; Z96.653 Presence of artificial knee joint, bilateral; Z98.890 Other specified postprocedural states; Z82.49 Family history of ischemic heart disease and other diseases of the circulatory system; Z82.61 Family history of arthritis
CPT/HCPCS: 36415; 49596; 64488; 80053; 82948; 85025; 93005; A4215; A4618; C1781; C9290; J0131; J0690; J1100; J2001; J2405; J2704; J3490; J7030; J7120; Z7506; Z7508; Z7512; Z7610